=== PATIENT | male | born 1995 | race Hispanic/Latino ===

== ENCOUNTER 2020-01-09 14:53 | Emergency (ER) | payer OTHER ==
[~2020-01-09] VITALS: Ht 172.7 cm; Wt 100.0 kg
[2020-01-09] MEDS ORDERED: BENADRYL 50MG C50 MG PO (15:26)
[2020-01-09] MEDS ORDERED: MEDDOSEPAK PO (15:26)
[2020-01-09 16:16] VITALS: BP 120/60
== END 2020-01-09 16:22 | disposition home or self-care (01) | DRG 916 ==
LOC: ED 14:53
DX: T78.40XA Allergy, unspecified, initial encounter (principal); X58.XXXA Exposure to other specified factors, initial encounter; Y92.73 Farm field as the place of occurrence of the external cause; Y99.0 Civilian activity done for income or pay